=== PATIENT | female | born 2000 | race American Indian/Alaskan Native ===

== ENCOUNTER 2021-06-14 00:19 | Emergency (ER) | payer MEDICAID ==
[2021-06-14] MEDS: Ketorolac 30 MG/ML SDV IM ONE (00:44)
[2021-06-14] MEDS: Acetaminophen 500 MG Tab PO ONE (01:26)
== END 2021-06-14 02:45 | disposition home or self-care (01) ==
LOC: FB.ED 00:19
DX: S82.402A Unspecified fracture of shaft of left fibula, initial encounter for closed fracture (principal); S93.402A Sprain of unspecified ligament of left ankle, initial encounter; S93.401A Sprain of unspecified ligament of right ankle, initial encounter; Z91.030 Bee allergy status; Z86.16 Personal history of COVID-19; X50.1XXA Overexertion from prolonged static or awkward postures, initial encounter
CPT/HCPCS: 73610-50; 96372; 99283; 99283-25; A9270-GY; J1885